=== PATIENT | female | born 2000 | race Caucasian/White ===

== ENCOUNTER 2019-07-24 17:38 | Emergency (ER) | payer BC, SELFPAY ==
[2019-07-24 17:51] VITALS: BP 127/78; PULSE 109; RESP 22; TEMP 37; O2SAT 100
--- NOTE | 2019-07-24 17:52 | ED.URI ---
HPI - URI/Sore Throat General Chief Complaint: Upper Respiratory Infection Stated Complaint: CONGESTION/SORE THROAT/COUGH Time Seen by Provider: 07/24/19 17:54 Source: patient Mode of arrival: ambulatory Limitations: no limitations History of Present Illness HPI Narrative: Amy Mena is a 19 yo female wit h no PMH who comes to express care with cough and sinus congestion. Cough started on Tues, no fever, states is eating and drinking Related Data Home Medications Medication Instructions Recorded Confirmed norgestimate-ethinyl estradiol 1 tablet PO DAILY 04/19/19 04/19/19 [Sprintec (28)] Allergies Allergy/AdvReac Type Severity Reaction Status Date / Time No Known Allergies Allergy Verified 04/19/19 15:11 Review of Systems Review of Systems: Narrative: CONSTITUTIONAL: Denies fever, chills, sweats. EYES: Denies visual changes, redness, discharge. ENT: hasrhinorrhea, congestion, no sore throat, otalgia. CARDIOVASCULAR: Denies chest pain, palpitations, edema. RESPIRATORY: Denies dyspnea, wheezing, has cough GASTROINTESTINAL: Denies abdominal pain, nausea, vomiting, diarrhea. GENITOURINARY: Denies dysuria, hematuria, abnormal discharge SKIN: Denies rash or itching. NEUROLOGIC: Denies numbness, or focal weakness. PSYCHIATRIC: Denies anxiety or depression. PMFSH Past Medical History Medical History No significant past medical history Surgical History Surgical History (Updated 04/19/19 @ 15:21 by Vandana Matos) No significant past surgical history Family History Family History Other No active medical problems Social History Social History Smoking status: Never smoker Alcohol intake: never Comments At time of signature, I agree with nursing past medical, surgical, social and family history. There is no relevant family history pertinent to the presenting complaint. Exam Narrative: Exam Narrative: GENERAL: This is a well-nourished, well-developed patient, in mild distress. afebrile, eating and drinking HEAD: normocephalic, atraumatic. EYES: PERRL. Sclera clear/white. Vision is grossly intact. EARS: External ears normal, auditory canals clear and without drainage, TMs normal without perforation. Hearing grossly intact. NOSE: External nose normal with nasal discharge, nares without redness, has rhinorrhea. THROAT: Mucous membranes moist, posterior pharynx mild erythema NECK: Neck supple, non-tender CARDIOVASCULAR: Regular rate and rhythm without murmurs, gallops, or rubs. RESPIRATORY: Clear to auscultation. Breath sounds equal bilaterally. No wheezes, rales, or rhonchi. Occ dry cough GASTROINTESTINAL: Abdomen soft, non-tender, SKIN: warm, intact with no suspicious lesions or rash, good texture and turgor. NEURO: awake, alert, and oriented to person, place and time. There were no obvious focal neurologic abnormalities. Steady gait EXTREMITIES: Normal range of motion. BACK: Nontender without deformity Course Course Emergency Course: Srep and flu neg. Will treat symptomatically, Discussed Caceres virus- afebrille, eating/drinking Vital Signs Vital signs: Vital Signs Temperature 98.6 F 07/24/19 17:51 Pulse Rate 109 H 07/24/19 17:51 Respiratory Rate 22 H 07/24/19 17:51 Blood Pressure 127/78 07/24/19 17:51 Pulse Oximetry 100 07/24/19 17:51 Temperature 98.6 F 07/24/19 17:51 Pulse Rate 109 H 07/24/19 17:51 Respiratory Rate 22 H 07/24/19 17:51 Blood Pressure 127/78 07/24/19 17:51 Pulse Oximetry 100 07/24/19 17:51 MDM - URI/Sore Throat Differential Diagnosis Differential diagnosis: Likely upper respiratory infection, otitis media, sinusitis, viral infection and other Lab Data Labs: Influenza A Screen Negative Reference Range: Negative Influenza B Screen Ne
--- NOTE | 2019-07-24 17:55 | PC.NURSE ---
pt was flu positive in May 2019
== END 2019-07-24 18:27 | disposition home or self-care (01) ==
PROVIDERS: Emergency Provider Nurse Practitioner
DX: J06.9 Acute upper respiratory infection, unspecified (principal)
CPT/HCPCS: 87081; 87804; 87880; 99213; G0463

== ENCOUNTER 2020-05-26 07:37 | Emergency (ER) | payer BC, SELFPAY ==
[2020-05-26] VITALS (16 sets, daily range): BP systolic 101–133; BP diastolic 59–80; PULSE 67–136; RESP 14–29; TEMP 36.9; O2SAT 97–100
--- NOTE | ~2020-05-26 | XR_ITS ---
EXAMINATION: XR chest 1V portable DATE: 05/26/2020 08:22 INDICATION: Chest pain and shortness of breath. TECHNIQUE: frontal view of the chest was obtained. COMPARISON: None FINDINGS: Patient is rotated slightly towards the left. The lungs are clear with no focal airspace opacities, p ulmonary edema, pleural effusion or pneumothorax. The cardiomediastinal silhouette is normal. Visuali zed bones and soft tissues are unremarkable. IMPRESSION: 1. No acute cardiopulmonary disease.. Reviewed, dictated and finalized at location [facility]. [facility] MASTER
--- NOTE | 2020-05-26 07:52 | ECG_ITS ---
Measurements Intervals [place] Rate: 120 P: 54 MN: 171 QRS: 10 QRSD: 85 T: 9 QT: 419 QTc: 594 Interpretive Statements SINUS TACHYCARDIA INCOMPLETE RIGHT BUNDLE BRANCH BLOCK MINIMAL Q WAVES- HIGH LATERAL LEADS NONSPECIFIC T-WAVE ABNORMALITY- ANT/INF LEADS ABNORMAL ECG Electronically Signed On 05-26-2020 8:23:11 [employer] by Garrick Gordillo D.O.
--- NOTE | 2020-05-26 08:06 | ED.GENADULT ---
HPI - General Adult General Chief complaint: Unspecified Stated complaint: panic attack per pt Time Seen by Provider: 05/26/20 07:43 Source: patient Mode of arrival: ambulatory Limitations: no limitations History of Present Illness HPI narrative: Patient is a 20 year old female who presents for evaluation of possible panic attack. She woke up over 1 hour ago with feeling of heart racing, anxiousness, shortness of breathing, right upper chest pain. She also reports she feels out of it . She had one episode of emesis prior to coming as well. She admits to taking 2 sour patch kid edibles at 930 pm last night, and this was her first time taking those. Related Data Allergies Allergy/AdvReac Type Severity Reaction Status Date / Time No Known Allergies Allergy Verified 05/26/20 07:56 Review of Systems Review of Systems: All systems reviewed & are unremarkable except as noted in HPI and below Constitutional: Constitutional: Denies chills, Reports fatigue and Denies fever(s) ENT: Denies sore throat Cardiovascular: Cardiovascular: Reports chest pain and Reports rapid heart rate Respiratory: Respiratory: Denies cough, Denies pain with cough and Reports dyspnea Gastrointestinal: Gastrointestinal: Denies abdominal pain, Denies diarrhea and Reports vomiting PMFSH Past Medical History Medical History (Updated 05/26/20 @ 10:54 by Yvonne Klein MD) Patient denies medical problems Surgical History Surgical History (Updated 05/26/20 @ 08:09 by Yvonne Klein MD) No pertinent past surgical history Social History Social History (Updated 05/26/20 @ 08:09 by Yvonne Klein MD) Smoking status: Never smoker Alcohol intake: current Substance use type: marijuana Gender identity (if verbalized by the patient): Female Exam Narrative: Exam Narrative: GENERAL: Well-appearing, well-nourished, and in no acute distress. HEAD: Normocephalic, atraumatic EYES: PERRLA and EOMI, conjunctiva clear without discharge THROAT:Mucous membranes moist, Oropharynx normal without erythema, exudate, peritonsillar swelling or fluctuance NECK: Supple, without lymphadenopathy or mass RESPIRATORY: No respiratory distress, Airway patent, Respirations non-labored, Clear to auscultation without rales, rhonchi or wheeze HEART: Regular rate and rhythm. No murmur heard. Normal peripheral pulses. ABDOMEN: Soft, nontender, nondistended, normal active bowel sounds. No masses. No rebound or guarding, No organomegaly. EXTREMITIES: No edema, normal strength with full range of motion. SKIN: Warm, dry, normal color without rash NEURO: Alert and oriented x3. CN 2-12 grossly intact. No focal deficits. PSYCH: Normal mood and affect. Course Reevaluation(s) Reevaluation #1: Patient states she feels better . Labs are unremarkable . She has not deficits to suggest need to brain imaging. She had no seizure activity. This appears to be due to cannabis. Date: 05/26/20 Time: 10:48 Vital Signs Vital signs: Vital Signs Pulse Rate 136 H 05/26/20 07:46 Respiratory Rate 27 H 05/26/20 07:46 Pulse Oximetry 100 05/26/20 07:46 Temperature 98.4 F 05/26/20 07:58 Pulse Rate 90 05/26/20 11:03 Respiratory Rate 18 05/26/20 11:03 Blood Pressure 107/65 05/26/20 11:03 Pulse Oximetry 98 05/26/20 11:03 Medical Decision Making Vital Signs Vital Signs: Vital Signs Pulse Rate 136 H 05/26/20 07:46 Respiratory Rate 27 H 05/26/20 07:46 Pulse Oximetry 100 05/26/20 07:46 Temperature 98.4 F 05/26/20 07:58 Pulse Rate 90 05/26/20 11:03 Respiratory Rate 18 05/26/20 11:03 Blood Pressure 107/65 05/26/20 11:03 Pulse Oximetry 98 05/26/20 11:03 Lab Data Lab results reviewed: Yes I reviewed the patient's lab results. Result diagrams: 05/26/20 08:22 05/26/20 08:22 Labs: Lab Results 05/26/20 05/26/20 05/26/20 Range/Units 08:22 08:22 08:22 WBC 8.1 (4.5-
[2020-05-26] MEDS: LACTATED RINGERS 1,000 ML 999 ML IV CONT (08:25)
[2020-05-26] MEDS: ONDANSETRON INJ 4 MG/2 ML VIAL IV PUSH (08:25)
[2020-05-26 08:29] LABS: Basophils Absolute Auto 0.1 K/mm3 (0.0-0.1); Basophils Percent Auto 0.7 % (0.2-1.2); Eosinophils Absolute Auto 0.1 K/mm3 (0-0.3); Eosinophils Percent Auto 0.6 % (0-4.4); Hematocrit 34.1 % (37.0-47.0); Hemoglobin 11.9 g/dL (12.0-15.0); Immature Granulocyte Absolute 0.02 K/mm3 (0.00-0.031); Immature Granulocyte Percent A 0.2 % (0-0.5); Lymphocytes Absolute Auto 2.39 K/mm3 (0.9-3.2); Lymphocytes Percent Auto 29.5 % (18.3-44.2); Mean Corpuscular HGB Conc 34.9 g/dl (32-36); Mean Corpuscular Hemoglobin 30.5 pg (26-34); Mean Corpuscular Volume 87.4 fl (80-100); Mean Platelet Volume 11.9 fl (7.4-10.4); Monocytes Absolute Auto 0.8 K/mm3 (0.1-0.6); Monocytes Percent Auto 9.3 % (2.6-8.5); Neutrophils Absolute Auto 4.8 K/mm3 (1.3-6.7); Neutrophils Percent Auto 59.7 % (45.5-73.1); Platelet Count Result 214 k/mm3 (150-375); Red Cell Distribution Width 12.3 % (11.5-14.5); White Blood Count 8.1 K/mm3 (4.5-10.0)
[2020-05-26 08:32] LABS: Add Urine Microscopic? YES; Appearance Urine Clear (Clear); Bacteria Urine 2+ /hpf; Bilirubin Urine Negative (Negative); Blood Urine Negative (Negative); Color Urine Yellow (Yellow); Glucose Urine UA Negative (Negative); Ketones Urine Negative (Negative); Leukocyte Esterase Ur Negative LEU/UL (Negative); Mucus Urine Few /lpf; Nitrate Urine Negative (Negative); Protein Urine 1+ mg/dL (Negative); RBC Urine 0-2 /hpf (0-2); Specific Grav Ur 1.024 (1.001-1.035); Squamous Epithelial Cell Urine Many /hpf (Few); Urobilinogen Urine Negative mg/dL (<2.0); WBC Urine 0-3 /hpf
[2020-05-26 08:40] LABS: INR 1.1; Prothrombin Time 14.4 Seconds (11.1-14.7)
[2020-05-26 08:41] LABS: Partial Thromboplastin Time 24.7 SECONDS (22.3-36.8)
[2020-05-26 08:43] LABS: Alanine Aminotransferase 14 U/L (4-35); Albumin Level 3.7 g/dL (3.5-5.1); Alkaline Phosphatase 54 U/L (38-126); Anion Gap 2 mmol/L (8-16); Aspartate Amino Transferase 21 U/L (14-36); Bilirubin,Total 0.3 mg/dL (0.2-1.3); Blood Urea Nitrogen 13 mg/dL (7-17); Calcium 8.4 mg/dL (8.4-10.2); Carbon Dioxide 25 mmol/L (22-30); Chloride 106 mmol/L (98-107); Estimated CRCL calculation 94 ml/min; Estimated Glomerular Filt Rate > 60; Glucose 108 mg/dL (65-105); Lactic Acid Reflex 1.3 mmol/L (0.7-2.1); Potassium 3.6 mmol/L (3.4-5.0); Sodium 133 mmol/L (137-145)
[2020-05-26 08:45] LABS: D Dimer 0.27 ug/mL (<0.48)
[2020-05-26 08:54] LABS: Troponin I < 0.012 ng/mL (0.000-0.034)
[2020-05-26 09:49] LABS: Amphetamine Screen Urine Negative (Negative); Barbiturate Screen Urine Negative (Negative); Benzodiazepines Screen Urine Negative (Negative); Cannabinoid Screen Urine Positive (Negative); Cocaine Screen Urine Negative (Negative); Methadone Screen Urine Negative (Negative); Opiate Screen Urine Negative (Negative); Phencyclidine Screen Urine Negative (Negative)
== END 2020-05-26 11:05 | disposition home or self-care (01) ==
PROVIDERS: Emergency Provider General Practice; PCP Family Medicine
DX: F12.90 Cannabis use, unspecified, uncomplicated (principal); F41.9 Anxiety disorder, unspecified; R00.0 Tachycardia, unspecified; I45.10 Unspecified right bundle-branch block; R94.31 Abnormal electrocardiogram [ECG] [EKG]
CPT/HCPCS: 36415; 71045; 80053; 80307; 81001; 81025; 83605; 84484; 85025; 85380; 85610; 85730; 93005; 96361; 96374; 99284; J2405; J7120

== ENCOUNTER 2020-06-15 00:17 | Emergency (ER) | payer BC, SELFPAY ==
--- NOTE | ~2020-06-15 | XR_ITS ---
EXAMINATION: XR nasal bones min 3V INDICATION: Facial pain, initial encounter TECHNIQUE: Three views of the nasal bones are obtained on four radiographs. COMPARISON: None available FINDINGS: There are acute, traumatic, nondisplaced anterior nasal bone fractures. Mild overlying soft tissue swelling is present. No additional acute fracture is identified. The right frontal sinus is h ypoplastic. IMPRESSION: 1. Acute nondisplaced nasal bone fractures. Reviewed, dictated and finalized at location A. ET LAT[employer] OPERATOR
[2020-06-15 00:24] VITALS: BP 128/81; PULSE 71; RESP 16; TEMP 36.8; O2SAT 99
[2020-06-15] MEDS: HYDROcodone/acetaminophen (*CRX) 5-325 MG TABLET 1 TAB PO (00:56)
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
[2020-06-15 02:02] VITALS: BP 121/78; PULSE 74; RESP 16; TEMP 36.7; O2SAT 100
== END 2020-06-15 02:03 | disposition home or self-care (01) ==
PROVIDERS: Emergency Provider Emergency Medicine
DX: S09.92XA Unspecified injury of nose, initial encounter (principal); W51.XXXA Accidental striking against or bumped into by another person, initial encounter
CPT/HCPCS: 70160; 99283; A9270